=== PATIENT | male | born 1975 | race Caucasian/White ===

== ENCOUNTER 2017-04-14 22:54 | Emergency (ER) | payer SELFPAY | END 2017-04-15 00:28 | disposition home or self-care (01) | LOC: ER 22:54 | DX: M54.5 Low back pain (principal); V43.52XD Car driver injured in collision with other type car in traffic accident, subsequent encounter; I10 Essential (primary) hypertension; F17.210 Nicotine dependence, cigarettes, uncomplicated | CPT/HCPCS: 96372; 99282-25; 99283; J2930 ==